=== PATIENT | female | born 1970 ===

== ENCOUNTER 2018-02-02 16:55 | Emergency (ER) | payer MEDICAID ==
[2018-02-02 17:20] VITALS: PULSE 86; TEMP 98.7; BMI 47.2
--- NOTE | 2018-02-02 17:24 | ED PDOC ---
Arrival/HPI - General Historian: Patient - History of Present Illness Narrative History of Present Illness (Text): 02/02/18 17:53 Patient is a 47 year old female with past medical history of hypertension, asthma, obesity who presents to the emergency department for left shoulder/arm pain that started 2-3 days ago. Patient denies any trauma or inciting events. She states that the pain has gradually worsen and is now constant in nature. Pain scale is 10/10. She has tried taking Ibuprofen 800mg at home with minimal relief in symptoms. Patient was seen in the ED for right shoulder/arm pain a few years ago and saw ortho outpatient where she was diagnosed with calcific tendonitis. Pain had improved with physical therapy. She states that this is a similar pain. Denies any dizziness, cp, palpitations, sob, abdominal pain, numbness/tingling. PMD: Dr Anderson Time/Duration: < week Symptom Onset: Gradual Symptom Course: Worsening Severity Level: 10 <Ivette Yung - Last Filed: 02/02/18 18:53> <Blas Alfaro - Last Filed: 02/02/18 19:01> - General Chief Complaint: Upper Extremity Problem/Injury Time Seen by Provider: 02/02/18 17:23 Past Medical History - Provider Review Nursing Documentation Reviewed: Yes - Past History Past History: No Previous - Infectious Disease Hx of Infectious Diseases: None - Cardiac Hx Cardiac Disorders: Yes Hx Congestive Heart Failure: Yes Hx Hypertension: Yes - Pulmonary Hx Respiratory Disorders: No - Neurological Hx Neurological Disorder: No - HEENT Hx HEENT Disorder: No - Renal Hx Renal Disorder: No - Endocrine/Metabolic Hx Endocrine Disorders: No - Hematological/Oncological Hx Blood Disorders: Yes Hx Anemia: Yes - Integumentary Hx Dermatological Disorder: No - Musculoskeletal/Rheumatological Hx Musculoskeletal Disorders: Yes Hx Arthritis: Yes Hx Falls: No - Gastrointestinal Hx Gastrointestinal Disorders: No - Genitourinary/Gynecological Hx Genitourinary Disorders: Yes (Hormonal imbalance, does not get her menstruation) - Psychiatric Hx Psychophysiologic Disorder: Yes Hx Depression: Yes Hx Substance Use: No - Surgical History Hx Appendectomy: Yes - Anesthesia Hx Anesthesia: Yes Hx Anesthesia Reactions: No Hx Malignant Hyperthermia: No - Suicidal Assessment Feels Threatened In Home Enviroment: No <Ivette Yung - Last Filed: 02/02/18 18:53> Family/Social History - Physician Review Nursing Documentation Reviewed: Yes Family/Social History: Unknown Family HX, Hypertension Smoking Status: Former Smoker Hx Alcohol Use: No Hx Substance Use: No <Ivette Yung - Last Filed: 02/02/18 18:53> Allergies/Home Meds <Ivette Yung - Last Filed: 02/02/18 18:53> <Blas Alfaro - Last Filed: 02/02/18 19:01> Allergies/Adverse Reactions: Allergies FISH Allergy (Verified 02/02/18 17:25) RASH Home Medications: Home Meds Medication Instructions Recorded Confirmed Lasix 20 mg PO DAILY 12/02/12 01/11/16 Metoprolol 50 mg PO BID 12/02/12 02/02/18 Valsartan [Diovan] 0 mg PO DAILY 01/11/16 02/02/18 Review of Systems - Physician Review All systems were reviewed & negative as marked: Yes - Review of Systems Constitutional: Normal. absent: Fatigue, Fevers Eyes: Normal. absent: Vision Changes ENT: Normal. absent: Hearing Changes Respiratory: Normal. absent: SOB, Cough Cardiovascular: Normal. absent: Chest Pain, Palpitations Gastrointestinal: Normal. absent: Abdominal Pain, Constipation, Diarrhea, Nausea, Vomiting Genitourinary Female: Normal. absent: Dysuria Musculoskeletal: Other (Left arm pain) Skin: absent: Rash Neurological: Normal. absent: Dizziness <Ivette Yung - Last Filed: 02/02/18 18:53> Physical Exam Vital Signs Reviewed: Yes Vital Signs Temp Pulse Resp BP Pulse Ox 02/02/18 17:19 98.7 F 86 18 151/85 H 96 Temperature: Afebrile Blood Pressure: Hypertensive Pulse: Regular Respiratory Rate: Normal Appearance: Positive for: Uncomfortable Pain Distress: Moderate Mental Status: Positive for: Alert and Oriented X 3 - Systems Exam Head: Present: Atraumatic, Normocephalic Pupils: Present: PERRL Extroacular Muscles: Present: EOMI Conjunctiva: Present: Normal Mouth: Present: Moist Mucous Membranes Neck: Present: Normal Range of Motion. No: Meningeal Signs, MIDLINE TENDERNESS Respiratory/Chest: Present: Clear to Auscultation, Good Air Exchange. No: Respiratory Distress, Accessory Muscle Use Cardiovascular: Present: Regular Rate and Rhythm, Normal S1, S2. 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 No: Cyanosis, Edema, Swelling Lower Extremity: Present: Normal Inspection Skin: Present: Warm, Dry, Normal Color Psychiatric: Present: Alert, Oriented x 3 <Ivette Yung - Last Filed: 02/02/18 18:53> Vital Signs Temp Pulse Resp BP Pulse Ox 02/02/18 17:19 98.7 F 86 18 151/85 H 96 <DominicBlas - Last Filed: 02/02/18 19:01> Medical Decision Making ED Course and Treatment: 02/02/18 17:40 Patient seen and examined at the bedside. Patient with 2-3 day history of left shoulder pain that has progressively gotten worse. On exam, AC joint extremely tender to palpation, ROM limited secondary to pain. Will order Xray of left shoulder and left humerus. Toradol 60mg IM. 02/02/18 18:52 Patient returned from radiology. Images reviewed. Will discharge patient home with Motrin and Pepcid. Patient instructed to follow up with Ortho and PMD outpatient. - RAD Interpretation Narrative RAD Interpretations (Text): 02/02/18 18:40 Shoulder XRAY: no acute fracture or dislocation Humerus XRAY: no acute fracture or dislocation Batch Freezer: ED Physician <Ivette Yung - Last Filed: 02/02/18 18:53> ED Course and Treatment: 02/02/18 18:59 Patient Seen with Resident: In agreement with resident note which contains more details about the patient. Patient seen and evaluated with resident. Came up with plan and treatment together. Impression: 47 year old female who is complaining of worsening left shoulder and arm pain for the past 2-3 days. Plan: --Toradol -- Left Humerus and Shoulder X-ray - RAD Interpretation Radiology Orders: 02/02/18 17:38 HUMERUS LEFT [RAD] Stat SHOULDER LEFT [RAD] Stat - Medication Orders Current Medication Orders: Discontinued Medications Ketorolac Tromethamine (Toradol) 60 mg IM STAT STA Stop: 02/02/18 17:40 Last Admin: 02/02/18 18:04 Dose: 60 mg MAR Pain Assessment Document 02/02/18 18:04 EB (Rec: 02/02/18 18:05 [id number]) Pain Reassessment Is this a pain reassessment? No Sleep Is patient sleeping during reassessment? No Presence of Pain Presence of Pain Yes Pain Scale Used Protocol: PSCALES Pain Scale Used Numeric Description Intensity of Pain at present 7 IM Administration Charges Document 02/02/18 18:04 EB (Rec: 02/02/18 18:05 [id number]) Charges for Administration # of IM Administrations 1 <Blas Alfaro - Last Filed: 02/02/18 19:01> - Scribe Statement The provider has reviewed the documentation as recorded by the Scribe Jacob Dumas Provider Scribe Attestation: All medical record entries made by the Scribe were at my direction and personally dictated by me. I have reviewed the chart and agree that the record accurately reflects my personal performance of the history, physical exam, medical decision making, and the department course for this patient. I have also personally directed, reviewed, and agree with the discharge instructions and disposition. <Blas Alfaro - Last Filed: 02/02/18 19:01> Disposition/Present on Arrival - Present on Arrival Any Indicators Present on Arrival: No History of DVT/PE: No History of Uncontrolled Diabetes: No Urinary Catheter: No History Surgical Site Infection Following: None - Disposition Have Diagnosis and Disposition been Completed?: Yes Disposition Time: 18:55 Patient Plan: Discharge <Ivette Yung - Last Filed: 02/02/18 18:53> <Blas Alfaro - Last Filed: 02/02/18 19:01> - Disposition Diagnosis: Shoulder pain, left Disposition: HOME/ ROUTINE Patient Problems: Current Active Problems Problem Status Onset Shoulder pain, left Acute Condition: FAIR Discharge Instructions (ExitCare): Shoulder Pain (DC) Additional Instructions: - Please follow up with Ortho within 2-3 days - If symptoms worsen, return to emergency department Prescriptions: Famotidine [Pepcid] 20 mg PO BID #8 tab Ibuprofen [Motrin] 600 mg PO Q6H PRN #16 tab PRN Reason: Pain, Moderate (4-7) Referrals: Mike Iverson MD [Staff Provider] - Follow up with primary Forms: [employer] (Kyrgyz)
[2018-02-02 19:16] VITALS: BP 132/78; RESP 16; O2SAT 97
--- NOTE | 2018-02-03 10:29 | RAD ---
PROCEDURE: Radiographs of the left humerus. HISTORY: arm pain COMPARISON: None. FINDINGS: BONES: Normal. No fracture or focal lesion. SOFT TISSUES: Normal. OTHER FINDINGS: None. IMPRESSION: Normal radiographs of left humerus.
--- NOTE | 2018-02-03 10:31 | RAD ---
Date of service: 02/02/2018 PROCEDURE: Radiographs of the Left Shoulder HISTORY: shoulder pain COMPARISON: No prior. FINDINGS: BONES: Normal. No fracture. JOINTS: Normal. Glenohumeral and acromioclavicular joints preserved. No osteoarthritis. SOFT TISSUES: Calcifications are seen adjacent to the humeral head consistent with calcific tendinitis. This measures 4 x 16 mm OTHER FINDINGS: None. IMPRESSION: Calcific tendinitis. No acute findings
== END 2018-02-02 19:16 | disposition home or self-care (01) ==
LOC: ED 16:55
DX: M25.512 Pain in left shoulder (principal); I11.0 Hypertensive heart disease with heart failure; I50.9 Heart failure, unspecified; Z87.891 Personal history of nicotine dependence
CPT/HCPCS: 73030; 73060; 96372; 99283; J1885

== ENCOUNTER 2018-07-10 09:46 | Emergency (ER) | payer MEDICAID ==
[2018-07-10 09:46] VITALS: BMI 47.2
--- NOTE | 2018-07-10 10:14 | ED PDOC ---
Arrival/HPI - General Chief Complaint: Lower Extremity Problem/Injury Time Seen by Provider: 07/10/18 10:11 Historian: Patient - History of Present Illness Narrative History of Present Illness (Text): 07/10/18 10:11 47 y/o female, pmh including htn, nkda, post menopausal, c/o lt. lateral foot pain x 2 days. Pt. stated that she hit the furniture edge last night without shoe/socks on, aching pain, able to bear weight, no skin breaking, no rash, no numbness or tingling, no night sweat, no dizziness, no other medical or psychological complaints. Past Medical History - Provider Review Nursing Documentation Reviewed: Yes - Past History Past History: No Previous - Infectious Disease Hx of Infectious Diseases: None - Reproductive Menopause: No - Cardiac Hx Cardiac Disorders: Yes Hx Congestive Heart Failure: Yes Hx Hypertension: Yes - Pulmonary Hx Respiratory Disorders: No - Neurological Hx Neurological Disorder: No - HEENT Hx HEENT Disorder: No - Renal Hx Renal Disorder: No - Endocrine/Metabolic Hx Endocrine Disorders: No - Hematological/Oncological Hx Blood Disorders: Yes Hx Anemia: Yes - Integumentary Hx Dermatological Disorder: No - Musculoskeletal/Rheumatological Hx Musculoskeletal Disorders: Yes Hx Arthritis: Yes Hx Falls: No - Gastrointestinal Hx Gastrointestinal Disorders: No - Genitourinary/Gynecological Hx Genitourinary Disorders: Yes (Hormonal imbalance, does not get her menstruation) - Psychiatric Hx Psychophysiologic Disorder: Yes Hx Depression: Yes Hx Substance Use: No - Surgical History Hx Appendectomy: Yes - Anesthesia Hx Anesthesia: Yes Hx Anesthesia Reactions: No Hx Malignant Hyperthermia: No - Suicidal Assessment Feels Threatened In Home Enviroment: No Family/Social History - Physician Review Nursing Documentation Reviewed: Yes Family/Social History: Unknown Family HX Smoking Status: Former Smoker Hx Alcohol Use: No Hx Substance Use: No Allergies/Home Meds Allergies/Adverse Reactions: Allergies FISH Allergy (Verified 02/02/18 17:25) RASH Home Medications: Home Meds Medication Instructions Recorded Confirmed Lasix 20 mg PO DAILY 12/02/12 01/11/16 Metoprolol 50 mg PO BID 12/02/12 02/02/18 Valsartan [Diovan] 0 mg PO DAILY 01/11/16 02/02/18 Review of Systems - Review of Systems Constitutional: absent: Fatigue, Fevers Eyes: absent: Vision Changes ENT: absent: Hearing Changes Respiratory: absent: SOB, Cough Cardiovascular: absent: Chest Pain Gastrointestinal: absent: Abdominal Pain, Diarrhea, Nausea, Vomiting Musculoskeletal: Arthralgias. absent: Back Pain, Neck Pain, Joint Swelling, Myalgias Skin: absent: Rash, Pruritis Neurological: absent: Headache, Dizziness Psychiatric: absent: Anxiety, Depression, Suicidal Ideation Physical Exam Vital Signs Reviewed: Yes Vital Signs Temp Pulse Resp BP Pulse Ox 07/10/18 09:53 98.2 F 70 18 133/84 97 Temperature: Afebrile Blood Pressure: Normal Pulse: Regular Respiratory Rate: Normal Appearance: Positive for: Well-Appearing, Non-Toxic, Comfortable Pain Distress: Mild Mental Status: Positive for: Alert and Oriented X 3 - Systems Exam Head: Present: Atraumatic, Normocephalic Pupils: Present: PERRL Extroacular Muscles: Present: EOMI Conjunctiva: Present: Normal Mouth: Present: Moist Mucous Membranes Neck: Present: Normal Range of Motion Respiratory/Chest: Present: Clear to Auscultation, Good Air Exchange. No: Respiratory Distress, Accessory Muscle Use Cardiovascular: Present: Regular Rate and Rhythm, Normal S1, S2. No: Murmurs Abdomen: No: Tenderness, Distention, Peritoneal Signs Back: Present: Normal Inspection Upper Extremity: Present: Normal Inspection. No: Cyanosis, Edema Lower Extremity: Present: Normal Inspection, NORMAL PULSES, Normal ROM, Neurovascularly Intact, Capillary Refill < 2 s, Other (Lt. foot: +ttp on the lt. lateral foot 5th digit region, no ecchymosis/abrasion/laceration, no skin breaking, FROM without limitation, sensation intact, motor 5/5, +DPPT pulses, capillary refill< 2 seconds, neurovascular intact. ). No: Edema, CALF TENDERNESS, Deformity Neurological: Present: GCS=15, CN II-XII Intact, Speech Normal, Motor Func Grossly Intact, Normal Cerebellar Funct, Gait Normal, Memory Normal Skin: Present: Warm, Dry, Normal Color. No: Rashes Psychiatric: Present: Alert, Oriented x 3, Normal Insight, Normal Concentration Medical Decision Making ED Course and Treatment: 07/10/18 10:14 -Lt. foot xray -Motrin 600mg -Observe and reassess 07/10/18 12:52 -Lt. foot xray: There is an obliquely oriented nondisplaced fracture through the 5th proximal phalanx seen only on the lateral view -Kayla tapping applied with neurovscular intact, cane -Discharge home with motrin, crutches, non weight bearing, kayla tapping, follow up with your own pmd and wrapper hand within 2 days, return to the ER for any new or worsening signs or symptoms. - RAD Interpretation Radiology Orders: 07/10/18 10:11 FOOT LEFT 5TH DIGIT (TOE) [RAD] Stat -Lt. foot xray: Date of service: 07/10/2018 PROCEDURE: Left Foot and 5th toe radiographs. HISTORY: injury, r/o fracture COMPARISON: None. TECHNIQUE: 3 views obtained. FINDINGS: BONES: There is an obliquely oriented nondisplaced fracture through the 5th proximal phalanx seen only on the lateral view JOINTS: Normal. SOFT TISSUES: Normal. OTHER FINDINGS: None. IMPRESSION: There is an obliquely oriented nondisplaced fracture through the 5th proximal phalanx seen only on the lateral view Ediphone Operator: Radiologist - PA / SPIRITUAL ADVISOR / Resident Statement MD/DO has reviewed & agrees with the documentation as recorded. Disposition/Present on Arrival - Present on Arrival Any Indicators Present on Arrival: No History of DVT/PE: No History of Uncontrolled Diabetes: No Urinary Catheter: No History of Decub. Ulcer: No History Surgical Site Infection Following: None - Disposition Have Diagnosis and Disposition been Completed?: Yes Diagnosis: Toe injury, Toe fracture Disposition: HOME/ ROUTINE Disposition Time: 12:53 Patient Plan: Discharge Patient Problems: Current Active Problems Problem Status Onset Toe injury Acute Toe pain Acute Condition: GOOD Additional Instructions: -Discharge home with motrin, crutches, non weight bearing, kayla tapping, follow up with your own pmd and wrapper hand within 2 days, return to the ER for any new or worsening signs or symptoms. Prescriptions: Ibuprofen [Motrin] 600 mg PO QID PRN #30 tab PRN Reason: Other Referrals: Floresita Gonzalez DPM [Staff Provider] - Follow up with primary Forms: [employer] (Fijian), WORK NOTE
--- NOTE | 2018-07-10 12:54 | RAD ---
Date of service: 07/10/2018 PROCEDURE: Left Foot and 5th toe radiographs. HISTORY: injury, r/o fracture COMPARISON: None. TECHNIQUE: 3 views obtained. FINDINGS: BONES: There is an obliquely oriented nondisplaced fracture through the 5th proximal phalanx seen only on the lateral view JOINTS: Normal. SOFT TISSUES: Normal. OTHER FINDINGS: None. IMPRESSION: There is an obliquely oriented nondisplaced fracture through the 5th proximal phalanx seen only on the lateral view
[2018-07-10 13:27] VITALS: BP 125/71; PULSE 71; RESP 17; TEMP 97.9; O2SAT 99
== END 2018-07-10 13:18 | disposition home or self-care (01) ==
LOC: ED 09:46
DX: S92.515A Nondisplaced fracture of proximal phalanx of left lesser toe(s), initial encounter for closed fracture (principal); W22.03XA Walked into furniture, initial encounter; I50.9 Heart failure, unspecified; I10 Essential (primary) hypertension; Z87.891 Personal history of nicotine dependence